=== PATIENT | female | born 1995 | race American Indian/Alaskan Native ===

== ENCOUNTER 2016-09-14 11:56 | Emergency (ER) | payer SELFPAY ==
[2016-09-14 12:14] VITALS: BP 129/73
--- NOTE | 2016-09-14 12:53 | Emergency Department Report ---
Entered by CRISS BOWIE, acting as scribe for KERLINE VALLADARES PA. Chief Complaint: Abdominal Pain Stated Complaint: ABD PAIN Time Seen by Provider: 09/14/16 12:28 - HPI History of Present Illness: 21 y/o female presents c/o sharp, abd pain that started 3 days ago. Additional Sx include abd pain, vaginal discharge, discolored urine and N/V. Pt is currently on her menstrual cycle. - ROS Review of Systems: as noted in HPI - Exam Vital Signs: Vital Signs 09/14/16 12:10 Temperature 98.3 F Pulse Rate 79 Respiratory 20 Rate Blood Pressure 129/73 O2 Sat by Pulse 100 Oximetry Physical Exam: General: 21-year-old female in no acute distress. Well-developed, well- nourished. CV: Regular rate and rhythm. No murmurs rubs or gallops. Lungs: Clear to auscultation bilaterally. Abdomen: No tenderness to palpation. No guarding or rebound tenderness. Normal bowel sounds. Mini Neuro: Alert and oriented 3. Back: No CVA tenderness MSE screening note: Focused history and physical exam performed. Due to findings the following was ordered: ED Disposition for MSE Condition: Stable Instructions: Abdominal Pain (ED) This documentation as recorded by the scribe,CRISS BOWIE,accurately reflects the service I personally performed and the decisions made by ,KERLINE VALLADARES PA.
--- NOTE | 2016-09-16 14:44 | ED Elopement Review ---
ED Pt Elopement review - Call Back decision Pt Call Back Decision: No action required
== END 2016-09-14 14:00 | disposition left against medical advice (07) ==
LOC: ED 11:56
DX: R10.9 Unspecified abdominal pain (principal); N89.8 Other specified noninflammatory disorders of vagina; Z53.21 Procedure and treatment not carried out due to patient leaving prior to being seen by health care provider

== ENCOUNTER 2018-01-04 19:37 | Emergency (ER) | payer SELFPAY ==
[2018-01-04 19:54] VITALS: BP 103/70
[2018-01-04 23:16] LABS: HCG Qualitative,Urine Negative (Negative)
[2018-01-04] MEDS ORDERED: MOTRIN PO ONE (23:55)
[2018-01-05 00:25] LABS: Basophils % (Auto) 0.6 % (0.0-1.8); Eosinophils # (Auto) 0.1 K/mm3 (0.0-0.4); Eosinophils % (Auto) 1.1 % (0.0-4.3); Hematocrit 38.7 % (30.3-42.9); Lymphocytes # (Auto) 2.3 K/mm3 (1.2-5.4); Lymphocytes % (Auto) 29.1 % (13.4-35.0); Mean Corpuscular HGB Conc 34 % (30-34); Mean Corpuscular Hemoglobin 27 pg (28-32); Mean Corpuscular Volume 80 fl (79-97); Monocytes # (Auto) 0.7 K/mm3 (0.0-0.8); Monocytes % (Auto) 8.8 % (0.0-7.3); Platelet Count 251 K/mm3 (140-440); Red Blood Count 4.82 M/mm3 (3.65-5.03); Red Cell Distribution Width 16.5 % (13.2-15.2)
[2018-01-05 00:48] LABS: BUN/Creatinine Ratio 13; Blood Urea Nitrogen 8 mg/dL (7-17); Calcium 9.4 mg/dL (8.4-10.2); Hemolysis Index 24
--- NOTE | 2018-01-05 01:21 | Emergency Department Report ---
ED ENT HPI - General Chief complaint: Dental/Oral Stated complaint: MOUTH PAIN Time Seen by Provider: 01/04/18 23:52 Source: patient Mode of arrival: Ambulatory Limitations: No Limitations - History of Present Illness Initial comments: 22-year-old female comes in for left-sided facial swelling with pain. Patient is unaware of any broken or that teeth. Patient states she took Tylenol yesterday and took Advil today. Patient put she still has pain 10 out of 10. Patient reports this is been going on for the last 3 days. Patient complains of swelling on her left side that traveling down to her left side of neck. Patient denies any fever or chills no nausea or vomiting. -: days(s) (3) Location: throat Severity scale (0 -10): 10 Quality: aching, sharp Improves with: swallowing Worsens with: swallowing Associated Symptoms: gum swelling, sore throat - Related Data Previous Rx's Medication Instructions Recorded Last Taken Type Amoxicillin/Potassium Clav 1 each PO BID #20 tablet 01/05/18 Unknown Rx [Augmentin 875-125 Tablet] Ibuprofen [Motrin 800 MG tab] 800 mg PO Q8HR #30 tablet 01/05/18 Unknown Rx Allergies Allergy/AdvReac Type Severity Reaction Status Date / Time No Known Allergies Allergy Unverified 09/14/16 12:09 ED Dental HPI - General Chief complaint: Dental/Oral Stated complaint: MOUTH PAIN Time Seen by Provider: 01/04/18 23:52 Source: patient Mode of arrival: Ambulatory Limitations: No Limitations - Related Data Previous Rx's Medication Instructions Recorded Last Taken Type Amoxicillin/Potassium Clav 1 each PO BID #20 tablet 01/05/18 Unknown Rx [Augmentin 875-125 Tablet] Ibuprofen [Motrin 800 MG tab] 800 mg PO Q8HR #30 tablet 01/05/18 Unknown Rx Allergies Allergy/AdvReac Type Severity Reaction Status Date / Time No Known Allergies Allergy Unverified 09/14/16 12:09 ED Review of Systems ROS: Stated complaint: MOUTH PAIN Other details as noted in HPI Constitutional: denies: chills, fever Eyes: denies: eye pain, eye discharge, vision change ENT: throat pain Respiratory: denies: cough, shortness of breath, wheezing Cardiovascular: denies: chest pain, palpitations Endocrine: no symptoms reported Gastrointestinal: denies: abdominal pain, nausea, diarrhea Genitourinary: denies: urgency, dysuria, discharge Musculoskeletal: denies: back pain, joint swelling, arthralgia Skin: denies: rash, lesions Neurological: headache. denies: weakness, paresthesias Psychiatric: denies: anxiety, depression Hematological/Lymphatic: denies: easy bleeding, easy bruising ED Past Medical Hx - Past Medical History Previous Medical History?: No - Surgical History Past Surgical History?: No - Social History Smoking Status: Current Every Day Smoker Substance Use Type: Alcohol - Medications Home Medications: Home Medications Medication Instructions Recorded Confirmed Last Taken Type Amoxicillin/Potassium Clav 1 each PO BID #20 tablet 01/05/18 Unknown Rx [Augmentin 875-125 Tablet] Ibuprofen [Motrin 800 MG tab] 800 mg PO Q8HR #30 tablet 01/05/18 Unknown Rx ED Physical Exam - General Limitations: No Limitations General appearance: alert, in no apparent distress - Head Head exam: Present: atraumatic, normocephalic - Eye Eye exam: Present: normal appearance - ENT ENT exam: Present: mucous membranes moist - Expanded ENT Exam Expanded Teeth exam: Present: gingival enlargement - Neck Neck exam: Present: tenderness, full ROM, lymphadenopathy - Respiratory Respiratory exam: Present: normal lung sounds bilaterally. Absent: respiratory distress - Cardiovascular Cardiovascular Exam: Present: regular rate, normal rhythm. Absent: systolic murmur, diastolic murmur, rubs, gallop - GI/Abdominal GI/Abdominal exam: Present: soft, normal bowel sounds - Neurological Exam Neurological exam: Present: alert, oriented X3 - Psychiatric Psychiatric exam: Present: normal affect, normal mood - Skin Skin exam: Present: warm, dry, intact, normal color. Absent: rash ED Course Vital Signs 01/04/18 19:52 Temperature 98.4 F Pulse Rate 79 Respiratory 18 Rate Blood Pressure 103/70 O2 Sat by Pulse 99 Oximetry ED Medical Decision Making - Lab Data Result diagrams: 01/05/18 00:04 01/05/18 00:04 Critical care attestation.: If time is entered above; I have spent that time in minutes in the direct care of this critically ill patient, excluding procedure time. ED Disposition Clinical Impression: Dental abscess Disposition: DC-01 TO HOME OR SELFCARE Is pt being admited?: No Does the pt Need Aspirin: No Condition: Stable Instructions: Dental Abscess (ED) Additional Instructions: Complete antibiotics as prescribed. Take pain medication as needed. Follow-up with the dentist. Prescriptions: Amoxicillin/Potassium Clav [Augmentin 875-125 Tablet] 1 each PO BID #20 tablet Ibuprofen [Motrin 800 MG tab] 800 mg PO Q8HR #30 tablet Referrals: PRIMARY CARE, [Primary Care Provider] - 3-5 Days [facility] [Outside] - 3-5 Days [facility] [Outside] - 3-5 Days [facility] [Provider Group] - 3-5 Days
--- NOTE | 2018-01-05 01:37 | Cat Scan Report ---
FINAL REPORT PROCEDURE: CT NECK W CON TECHNIQUE: Computerized axial tomography of the soft tissue neck was performed following the IV injection of iodinated nonionic contrast. HISTORY: Left-sided jaw and neck swelling. COMPARISON: No prior studies are available for comparison. FINDINGS: Skull and scalp: Normal. Paranasal sinuses: Normal. Nasopharynx: Normal . Oral cavity: Normal . Epiglottis/vallecula: Normal . Larynx/pyriform sinuses: Normal . Thyroid gland: Normal . Lymph nodes: Scattered lymph nodes throughout the neck, left greater than right. Largest about the angle of the mandible and in the submental region. One anterior lateral to the left carotid artery and internal jugular vein and anterior medial to the sternocleidomastoid muscle measures 16 x 12 mm. One just inferior to the mandible measures 18 by 7.7 mm. Salivary glands: Normal . Upper thorax: Normal . Other: Piercing about left lip. Minimal subcutaneous stranding changes seen about the left neck, particularly posterior laterally. IMPRESSION: Scattered lymph nodes throughout the neck, somewhat enlarged particularly about the angle of the mandible and the submental region, left greater than right. Minimal subcutaneous stranding changes about the left neck, particularly posterior laterally. Consider reactive to infectious/inflammatory process. Consider further evaluation and followup if there is concern for underlying myeloproliferative process. Piercing about the left lip. Artifact in the 1st region obscures visualization, consider correlating clinically if there is concern for mild infectious/inflammatory process about this region.
== END 2018-01-05 02:00 | disposition home or self-care (01) ==
LOC: ED 19:37
DX: K04.7 Periapical abscess without sinus (principal); F17.200 Nicotine dependence, unspecified, uncomplicated
CPT/HCPCS: 36415; 70491; 80048; 81025; 85025; 99284; Q9967

== ENCOUNTER 2021-05-07 12:51 | Emergency (ER) | payer SELFPAY ==
[2021-05-07] MEDS ORDERED: LIDOCAINE-MPF (1%) 10 MG/1 ML VIAL 5 ML INFILTRATI ONE (17:36)
--- NOTE | 2021-05-07 17:40 | Emergency Department Report ---
ED Female HPI - General Chief complaint: Urogenital-Female Stated complaint: VAGINAL ISSUES Time Seen by Provider: 05/07/21 17:04 Source: patient Mode of arrival: Ambulatory Limitations: No Limitations - History of Present Illness Initial comments: 25-year-old morbid obese -[place] female presents to the emergency room complaining of vaginal discharge and unprotected intercourse. Patient denies any pelvic pain no abdominal pain no nausea no vomiting no fever no chills. Patient thinks she may have gotten a STD. MD Complaint: vaginal discharge, possible STD Onset/Timin -: days(s) Severity scale (0 -10): 0 Are you Now?: No Last Menstrual Period: 04/26/21 EDC: 01/31/22 - Related Data Sexually active: Yes : 0 Previous Rx's Medication Instructions Recorded Last Taken Type Amoxicillin/Potassium Clav 1 each PO BID #20 tablet 01/05/18 Unknown Rx [Augmentin 875-125 Tablet] Ibuprofen [Motrin 800 MG tab] 800 mg PO Q8HR #30 tablet 01/05/18 Unknown Rx Doxycycline Hyclate [Doxycycline 100 mg PO Q12HR 7 Days #14 tab 05/07/21 Unknown Rx Hyclate TAB] Allergies Allergy/AdvReac Type Severity Reaction Status Date / Time No Known Allergies Allergy Unverified 09/14/16 12:09 ED Review of Systems ROS: Stated complaint: VAGINAL ISSUES Other details as noted in HPI Comment: All other systems reviewed and negative ED Past Medical Hx - Social History Smoking Status: Current Every Day Smoker Substance Use Type: Alcohol - Medications Home Medications: Home Medications Medication Instructions Recorded Confirmed Last Taken Type Amoxicillin/Potassium Clav 1 each PO BID #20 tablet 01/05/18 Unknown Rx [Augmentin 875-125 Tablet] Ibuprofen [Motrin 800 MG tab] 800 mg PO Q8HR #30 tablet 01/05/18 Unknown Rx Doxycycline Hyclate [Doxycycline 100 mg PO Q12HR 7 Days #14 tab 05/07/21 Unkn own Rx Hyclate TAB] ED Physical Exam - General Limitations: No Limitations General appearance: alert, in no apparent distress - Head Head exam: Present: atraumatic, normocephalic - Eye Eye exam: Present: normal appearance - ENT ENT exam: Present: normal exam - Neck Neck exam: Present: normal inspection, full ROM - Respiratory Respiratory exam: Absent: respiratory distress, accessory muscle use - Cardiovascular Cardiovascular Exam: Present: regular rate - Extremities Exam Extremities exam: Present: normal inspection, full ROM - Back Exam Back exam: Present: normal inspection, full ROM - Neurological Exam Neurological exam: Present: alert, oriented X3, normal gait - Psychiatric Psychiatric exam: Present: normal affect, normal mood - Skin Skin exam: Present: warm, dry, intact, normal color. Absent: rash ED Course Vital Signs 05/07/21 13:50 Temperature 99.7 F H Pulse Rate 90 Respiratory 16 Rate Blood Pressure 145/97 [Left] O2 Sat by Pulse 100 Oximetry ED Medical Decision Making - Medical Decision Making 25-year-old morbid obese -[place] female presents to the emergency room complaining of vaginal discharge and unprotected intercourse. Patient denies any pelvic pain no abdominal pain no nausea no vomiting no fever no chills. Patient thinks she may have gotten a STD. Discussed with patient she will be treated for gonorrhea and a prescription for chlamydia patient is to follow-up at the health department or primary care provider for full STD evaluation and treatment. Critical care attestation.: If time is entered above; I have spent that time in minutes in the direct care of this critically ill patient, excluding procedure time. ED Disposition Clinical Impression: Vaginitis, Concern about STD in female without diagnosis, Severely overweight Disposition: 01 HOME / SELF CARE / HOMELESS Is pt being admited?: No Does the pt Need Aspirin: No Condition: Stable Instructions: Vaginitis, [id number], Exercising to Lose Weight Additional Instructions: Complete antibiotics as prescribed. I recommended she follow-up with an [employer], primary care in or [facility] for a full STD evaluation. Prescriptions: Doxycycline Hyclate [Doxycycline Hyclate TAB] 100 mg PO Q12HR 7 Days #14 tab Referrals: PRIMARY CARE, [Primary Care Provider] - 3-5 Days [facility] [Outside] - 3-5 Days [facility] [Outside] - 3-5 Days Forms: Work/School Release Form(ED) Time of Disposition: 17:40
[2021-05-07 18:09] VITALS: BP 142/86
== END 2021-05-07 18:09 | disposition home or self-care (01) ==
LOC: ED 12:51
DX: N76.0 Acute vaginitis (principal); Z20.2 Contact with and (suspected) exposure to infections with a predominantly sexual mode of transmission; F17.200 Nicotine dependence, unspecified, uncomplicated; Z72.89 Other problems related to lifestyle; Z79.899 Other long term (current) drug therapy
CPT/HCPCS: 96372; 99282; J0696; J3490

== ENCOUNTER 2021-07-29 14:36 | Emergency (ER) | payer SELFPAY ==
[2021-07-29] MEDS ORDERED: ACETAMINOPHEN W/CODEINE 300-30 MG TAB PO ONE (15:23)
--- NOTE | 2021-07-29 16:19 | XRay Report ---
RIGHT KNEE 3 VIEW(S) INDICATION / CLINICAL INFORMATION: fall, pain COMPARISON: None available. FINDINGS: BONES / JOINT(S): No acute fracture or subluxation. No significant arthritis. SOFT TISSUES: No significant abnormality. ADDITIONAL FINDINGS: None. Signer Name: Tato Powell DO Signed: 07/29/2021 4:14 PM Workstation Name: [id number]
--- NOTE | 2021-07-29 16:59 | Emergency Department Report ---
ED Fall HPI - General Chief Complaint: Fall Stated Complaint: RT KNEE PAIN Time Seen by Provider: 07/29/21 15:09 Source: patient Mode of arrival: Ambulatory - History of Present Illness Initial Comments: 26-year-old black female with no past medical history presents to the emergency department for evaluation of right knee pain after slipping down on a banana while walking around [facility]. She denies loss of consciousness but states that she has right knee pain 9 out of 10. MD Complaint: fall -: Sudden Fall From: standing When Fall Occurred: 1-3 hours [employer] Fall Witnessed: yes, by family Place Fall Occurred: other (At [facility]) Loss of Consciousness: none Symptoms Prior to Fall: none Location - Extremities: Right: Knee Severity: severe Severity scale (0 -10): 9 Quality: aching Context: tripped/slipped Associated Symptoms: denies - Related Data Previous Rx's Medication Instructions Recorded Last Taken Type Amoxicillin/Potassium Clav 1 each PO BID #20 tablet 01/05/18 Unknown Rx [Augmentin 875-125 Tablet] Ibuprofen [Motrin 800 MG tab] 800 mg PO Q8HR #30 tablet 01/05/18 Unknown Rx Doxycycline Hyclate [Doxycycline 100 mg PO Q12HR 7 Days #14 tab 05/07/21 Unknown Rx Hyclate TAB] Naproxen [Naprosyn] 500 mg PO BID #14 tab 07/29/21 Unknown Rx Allergies Allergy/AdvReac Type Severity Reaction Status Date / Time No Known Allergies Allergy Unverified 09/14/16 12:09 ED Review of Systems ROS: Stated complaint: RT KNEE PAIN Other details as noted in HPI Comment: All other systems reviewed and negative Constitutional: denies: fever Eyes: denies: eye pain ENT: denies: ear pain Respiratory: denies: cough Cardiovascular: denies: chest pain, dyspnea on exertion Endocrine: no symptoms reported Gastrointestinal: denies: abdominal pain, nausea, vomiting Genitourinary: denies: urgency, dysuria Musculoskeletal: denies: back pain Skin: denies: rash, lesions Neurological: denies: headache, weakness, numbness, paresthesias Psychiatric: denies: anxiety Hematological/Lymphatic: denies: easy bleeding, easy bruising ED Past Medical Hx - Past Medical History Previous Medical History?: No - Surgical History Past Surgical History?: No - Social History Smoking Status: Current Every Day Smoker Substance Use Type: Alcohol - Medications Home Medications: Home Medications Medication Instructions Recorded Confirmed Last Taken Type Amoxicillin/Potassium Clav 1 each PO BID #20 tablet 01/05/18 Unknown Rx [Augmentin 875-125 Tablet] Ibuprofen [Motrin 800 MG tab] 800 mg PO Q8HR #30 tablet 01/05/18 Unknown Rx Doxycycline Hyclate [Doxycycline 100 mg PO Q12HR 7 Days #14 tab 05/07/21 Unknown Rx Hyclate TAB] Naproxen [Naprosyn] 500 mg PO BID #14 tab 07/29/21 Unknown Rx ED Physical Exam - General Limitations: No Limitations General appearance: alert, in no apparent distress - Head Head exam: Present: atraumatic, normocephalic - Eye Eye exam: Present: normal appearance. Absent: conjunctival injection - Neck Neck exam: Present: normal inspection - Respiratory Respiratory exam: Absent: respiratory distress - Cardiovascular Cardiovascular Exam: Present: regular rate - GI/Abdominal GI/Abdominal exam: Absent: distended - Expanded Lower Extremity Exam Right Knee exam: Present: tenderness, swelling. Absent: full ROM, abrasion, laceration, ecchymosis, dislocation, erythema Neuro vascular tendon exam: Present: no vascular compromise. Absent: pulse deficit Gait: Positive: observed and limited by pain - Back Exam Back exam: Present: normal inspection. Absent: tenderness - Neurological Exam Neurological exam: Present: alert, oriented X3 - Psychiatric Psychiatric exam: Present: normal affect, normal mood - Skin Skin exam: Present: warm, dry, intact, normal color ED Course Vital Signs 07/29/21 07/29/21 07/29/21 14:52 15:37 17:11 Temperature 98.5 F 98.2 F Pulse Rate 90 90 Respiratory 20 14 15 Rate Blood Pressure 134/80 110/70 [Right] O2 Sat by Pulse 99 99 Oximetry ED Medical Decision Making - Radiology Data Radiology results: report reviewed, image reviewed Right knee x-ray without any acute abnormalities noted. - Medical Decision Making 26-year-old black female with no past medical history presents to the emergency department for evaluation of right knee pain after slipping down on a banana while walking around [employer]. She denies loss of consciousness but states that she has right knee pain 9 out of 10. Right knee x-ray without any acute abnormalities noted. Patient was advised to take 7-day course of naproxen as prescribed and follow-up with orthopedics for more advanced imaging if no improvement or worsening symptoms. She verbalized understanding of and agreement with plan of care. Critical care attestation.: If time is entered above; I have spent that time in minutes in the direct care of this critically ill patient, excluding procedure time. ED Disposition Clinical Impression: Right knee pain Qualifiers: Chronicity: acute Qualified Code(s): M25.561 - Pain in right knee Disposition: 01 HOME / SELF CARE / HOMELESS Is pt being admited?: No Does the pt Need Aspirin: No Condition: Stable Instructions: How to Use Cold Therapy, [id number], Acute Knee Pain, Adult, [id number] Additional Instructions: Take medications as prescribed. Follow-up with orthopedic surgeon if no improvement or worsening symptoms. Prescriptions: Naproxen [Naprosyn] 500 mg PO BID #14 tab Referrals: BENNIE CHOWDARY MD [Staff Physician] - 3-5 Days Time of Disposition: 16:59
[2021-07-29 17:12] VITALS: BP 110/70
== END 2021-07-29 17:12 | disposition home or self-care (01) ==
LOC: ED 14:36
DX: M25.561 Pain in right knee (principal); F17.200 Nicotine dependence, unspecified, uncomplicated; F10.20 Alcohol dependence, uncomplicated
CPT/HCPCS: 99283

== ENCOUNTER 2021-12-22 23:09 | Emergency (ER) | payer SELFPAY ==
[2021-12-23] MEDS ORDERED: TETRACAINE 0.5% OPHTH SOLN 4ML OU PRN (02:03)
[2021-12-23] MEDS ORDERED: FLUORESCEIN 1 MG STRIP OP ONE (02:03)
--- NOTE | 2021-12-23 02:16 | Emergency Department Report ---
ED Eye Problem HPI - General Chief complaint: Eye Problems Stated complaint: FB/RT EYE Source: patient Mode of arrival: Ambulatory Limitations: No Limitations - History of Present Illness Initial comments: Patient is a 26-year-old -Swiss female with no past medical history presents to the ED with complaint of acute onset persistent right eye pain with tearing and discharge as well as redness and irritation after a suspected artificial eyelashes entered into her right eye and she has been rubbing her right ever since this happened. Patient states that there is a foreign body sensation in the right eye making it difficult for her to be comfortable. Patient denies vision loss, dizziness, syncope, fever, chills, nausea and vomiting, headache, nasal and sinus congestion, sore throat, cough or chest pain or shortness of breath. MD chief complaint: eye pain (right ), eye redness (right), eye injury (right) -: Sudden, hour(s) (16) Onset Description: sudden Location: right eye Place: home If Injury: other (Foreign body scratched right eye) Eye Symptoms: burning, redness, pain, foreign body sensation, discharge, photophobia Severity: severe Severity scale (0 -10): 7 If Pain, Quality: sharp, burning Consistency: constant Context: other (Artificial eyelash injury to the right eye) Associated Symptoms: none Treatments Prior to Arrival: irrigated eye - Related Data Patient Tetanus UTD: Yes Previous Rx's Medication Instructions Recorded Last Taken Type Amoxicillin/Potassium Clav 1 each PO BID #20 tablet 01/05/18 Unknown Rx [Augmentin 875-125 Tablet] Doxycycline Hyclate [Doxycycline 100 mg PO Q12HR 7 Days #14 tab 05/07/21 Unknown Rx Hyclate TAB] Naproxen [Naprosyn] 500 mg PO BID #14 tab 07/29/21 Unknown Rx Ibuprofen [Motrin 800 MG tab] 800 mg PO Q8HR #30 tablet 12/23/21 Unknown Rx Tobramycin 0.3% [Tobrex] 1 drop OP Q8HR #5 ml 12/23/21 Unknown Rx Allergies Allergy/AdvReac Type Severity Reaction Status Date / Time No Known Allergies Allergy Unverified 09/14/16 12:09 ED Review of Systems ROS: Stated complaint: FB/RT EYE Other details as noted in HPI Constitutional: denies: chills, fever Eyes: eye pain (Right eye pain), eye discharge. denies: vision change ENT: denies: ear pain, throat pain Respiratory: denies: cough, shortness of breath, wheezing Cardiovascular: denies: chest pain, palpitations Endocrine: no symptoms reported Gastrointestinal: denies: abdominal pain, nausea, diarrhea Genitourinary: denies: urgency, dysuria, discharge Musculoskeletal: denies: back pain, joint swelling, arthralgia Skin: denies: rash, lesions Neurological: denies: headache, weakness, paresthesias Psychiatric: denies: anxiety, depression Hematological/Lymphatic: denies: easy bleeding, easy bruising ED Past Medical Hx - Social History Smoking Status: Current Every Day Smoker Substance Use Type: Alcohol - Medications Home Medications: Home Medications Medication Instructions Recorded Confirmed Last Taken Type Amoxicillin/Potassium Clav 1 each PO BID #20 tablet 01/05/18 Unknown Rx [Augmentin 875-125 Tablet] Doxycycline Hyclate [Doxycycline 100 mg PO Q12HR 7 Days #14 tab 05/07/21 Unknown Rx Hyclate TAB] Naproxen [Naprosyn] 500 mg PO BID #14 tab 07/29/21 Unknown Rx Ibuprofen [Motrin 800 MG tab] 800 mg PO Q8HR #30 tablet 12/23/21 Unknown Rx Tobramycin 0.3% [Tobrex] 1 drop OP Q8HR #5 ml 12/23/21 Unknown Rx ED Physical Exam - General Limitations: No Limitations General appearance: alert, in no apparent distress - Head Head exam: Present: atraumatic, normocephalic, normal inspection - Eye Eye exam: Present: normal appearance, PERRL, EOMI, other (Erythematous right cornea and conjunctiva with mild purulent discharge; evidence of right corneal abrasion on Hendrix lamp exam using fluorescein dye) Pupils: Present: normal accommodation - ENT ENT exam: Present: normal exam, normal orophraynx, mucous membranes moist, TM's normal bilaterally, normal external ear exam - Neck Neck exam: Present: normal inspection, full ROM. Absent: tenderness - Respiratory Respiratory exam: Present: normal lung sounds bilaterally. Absent: respiratory distress, wheezes, rales, chest wall tenderness, accessory muscle use, decreased breath sounds, prolonged expiratory - Cardiovascular Cardiovascular Exam: Present: regular rate, normal rhythm, normal heart sounds. Absent: systolic murmur, diastolic murmur, rubs, gallop - GI/Abdominal GI/Abdominal exam: Present: soft, normal bowel sounds. Absent: tenderness, guarding, rebound, hyperactive bowel sounds, hypoactive bowel sounds, organomegaly - Extremities Exam Extremities exam: Present: normal inspection, full ROM, normal capillary refill. Absent: tenderness, pedal edema, joint swelling, calf tenderness - Back Exam Back exam: Present: normal inspection, full ROM. Absent: tenderness, CVA tenderness (R), CVA tenderness (L), muscle spasm, paraspinal tenderness, vertebral tenderness - Neurological Exam Neurological exam: Present: alert, oriented X3, CN II-XII intact, normal gait, reflexes normal - Psychiatric Psychiatric exam: Present: normal affect, normal mood - Skin Skin exam: Present: warm, dry, intact, normal color. Absent: rash ED Course Vital Signs 12/22/21 23:17 Temperature 98.7 F Pulse Rate 98 H Respiratory 17 Rate Blood Pressure 116/70 [Right] O2 Sat by Pulse 100 Oximetry ED Medical Decision Making - Medical Decision Making This is a 26-year-old -Swiss female with no past medical history presents to the ED with complaint of acute onset persistent right eye pain with tearing and discharge as well as redness and irritation after a suspected artificial eyelashes entered into her right eye and she has been rubbing her right ever since this happened. Patient states that there is a foreign body sensation in the right eye making it difficult for her to be comfortable. In the ED, patient is alert and oriented x3 and is not in any distress. Patient was treated in the ED for pain with ibuprofen. Patient right I was also treated with tetracaine solution for local anesthesia and wood lamp exam using fluorescein dye revealed anterior right corneal abrasion. Patient was discharged home on pain medication and antibiotic eyedrops and was referred to currency examiner Dr. Pablo for further evaluation. Patient was advised to follow- up with her primary care physician also in 7 to 10 days for reevaluation. Patient was advised return to the ED immediately if symptoms get worse. - Differential Diagnosis Corneal abrasion; conjunctival abrasion; conjunctivitis; eye injury Critical care attestation.: If time is entered above; I have spent that time in minutes in the direct care of this critically ill patient, excluding procedure time. ED Disposition Clinical Impression: Acute bacterial conjunctivitis of right eye Injury of right conjunctiva and corneal abrasion Qualifiers: Encounter type: initial encounter Qualified Code(s): S05.01XA - Injury of conjunctiva and corneal abrasion without foreign body, right eye, initial encounter Right eye injury Qualifiers: Encounter type: initial encounter Qualified Code(s): S05.91XA - Unspecified injury of right eye and orbit, initial encounter Disposition: HOME / SELF CARE / HOMELESS Is pt being admited?: No Does the pt Need Aspirin: No Condition: Stable Instructions: Corneal Abrasion, [id number], How to Use Eye Drops and Eye Ointments, Bacterial Conjunctivitis, Adult, [id number] Additional Instructions: Apply the antibiotic eyedrop medication to the affected eye as advised, drink plenty of fluids, take pain medication as needed and follow-up with the currency examiner Dr. Hannah Brito in 3 to 5 days for reevaluation. Consider following up with your primary care physician in 7 to 10 days for reevaluation. Return to the ED immediately if symptoms get worse. Prescriptions: Ibuprofen [Motrin 800 MG tab] 800 mg PO Q8HR #30 tablet Tobramycin 0.3% [Tobrex] 1 drop OP Q8HR #5 ml Referrals: NICHELLE PABLO MD [Staff Physician] - 3-5 Days [facility] [Provider Group] - 7-10 days Forms: Work/School Release Form(ED) Time of Disposition: 02:19 Print Language: [place]
[2021-12-23 02:45] VITALS: BP 121/76
[2021-12-23] MEDS ORDERED: IBUPROFEN 800 MG TAB PO ONE (03:07)
== END 2021-12-23 03:40 | disposition home or self-care (01) ==
LOC: ED 23:09
DX: S05.01XA Injury of conjunctiva and corneal abrasion without foreign body, right eye, initial encounter (principal); H10.31 Unspecified acute conjunctivitis, right eye; B96.89 Other specified bacterial agents as the cause of diseases classified elsewhere; F17.200 Nicotine dependence, unspecified, uncomplicated; X58.XXXA Exposure to other specified factors, initial encounter; Y93.89 Activity, other specified; Y92.89 Other specified places as the place of occurrence of the external cause; Y99.8 Other external cause status
CPT/HCPCS: 99283